=== PATIENT | male | born 1960 | race Caucasian/White ===

== ENCOUNTER 2018-05-19 17:50 | Emergency (ER) | payer OTHER ==
[2018-05-19] MEDS ORDERED: Bupivacaine 0.25% 10 ML SDV INJECT ONE ×2 (19:03→20:12)
[2018-05-19] MEDS ORDERED: Bupivacaine 0.25% 10 ML SDV ONE (20:10)
--- NOTE | 2018-05-19 20:36 | EDM.PDOC ---
ED HPI GENERAL MEDICAL PROBLEM - General Chief Complaint: Laceration Stated Complaint: MED[facility] Time Seen by Provider: 05/19/18 18:27 Source of Information: Reports: Patient History Limitations: Reports: No Limitations - History of Present Illness INITIAL COMMENTS - FREE TEXT/NARRATIVE: This gentleman was clearing out a snowblower today with a piece of lumber was about 1x1" and a couple feet long and he was wearing gloves and he slipped on some ice and sort of fell forward onto his outstretched hands but put all his weight on the end of that stick with the palm of his right hand. And of course she got a laceration in the palm. He said it didn't bleed very much. He began driving toward clinic but then began to feel faint so he called 911 area - Related Data Allergies Allergy/AdvReac Type Severity Reaction Status Date / Time No Known Allergies Allergy Verified 05/19/18 17:59 Home Meds: Home Meds NK [No Known Home Meds] 05/19/18 [History] Past Medical History HEENT History: Reports: Impaired Vision - Past Surgical History HEENT Surgical History: Reports: Oral Surgery Social & Family History - Tobacco Use Smoking Status *Q: Never Smoker - Alcohol Use Days Per Week of Alcohol Use: 3 Number of Drinks Per Day: 1 Total Drinks Per Week: 3 - Recreational Drug Use Recreational Drug Use: No ED ROS GENERAL - Review of Systems Review Of Systems: ROS reveals no pertinent complaints other than HPI. ED EXAM, SKIN/RASH Exam: See Below Exam Limited By: No Limitations General Appearance: Alert, WD/WN, No Apparent Distress Extremities: Other (There is a laceration to the right hand it's from the middle of the palm and extending up onto the hyperthenar eminence. It is L shaped 2x2.5 cm. It's a clean wound. Penetrate just slightly into the deeper tissues of the hand. Neurovascular tendon all intact.) Course - Vital Signs Last Recorded V/S: Last Vital Signs Temp 36.2 C 05/19/18 17:57 Pulse 59 L 05/19/18 17:57 Resp 16 05/19/18 17:57 BP 134/81 05/19/18 17:57 Pulse Ox 92 L 05/19/18 17:57 - Orders/Labs/Meds Meds: Medications Discontinued Medications Generic Name Dose Route Start Last Admin Trade Name Freq PRN Reason Stop Dose Admin Bupivacaine HCl 10 ml 05/19/18 19:03 05/19/18 19:25 Sensorcaine-Mpf 0.25% INJECT 05/19/18 19:04 10 ml ONETIME ONE Administration Bupivacaine HCl 10 ml 05/19/18 20:12 05/19/18 20:13 Sensorcaine-Mpf 0.25% INJECT 05/19/18 20:13 10 ml ONETIME ONE Administration Bupivacaine HCl Confirm 05/19/18 20:10 Sensorcaine-Mpf 0.25% Administered 05/19/18 20:11 Dose 10 ml .[address] .[facility] - Re-Assessments/Exams Free Text/Narrative Re-Assessment/Exam: 05/19/18 20:34 Procedure laceration repair. The wound was injected with 10 mL of 0.25% bupivacaine. A little bit more was required so a second 10 mm dose was procured about 1 mL more was injected around the skin and then I used about 4 mL injecting down deeper into the wound. This gave good anesthesia. The surrounding tissues were then skin surface was then scrubbed with Hibiclens and saline. The wound was copiously irrigated with normal saline by syringe and I palpated the steps of the wound to be sure there was no foreign body. The wound was then closed with a running 4-0 nylon suture giving a good cosmetic result. Bacitracin ointment was applied followed by sterile dressing. Free Text/Narrative Re-Assessment/Exam: 05/19/18 20:37 Tetanus is up-to-date Departure - Departure Time of Disposition: 20:37 Disposition: Home, Self-Care 01 Condition: Fair Clinical Impression: Laceration of right hand - Discharge Information Referrals: PCP,None [Primary Care Provider] - Forms: ED Department Discharge Additional Instructions: Remove the dressing day after tomorrow. Then wash gently with soap and water apply some antibiotic ointment and then covered with a new dressing. Repeat this daily. Watch for any signs of infection and then see your Dr. in 10 days for suture removal.
[2018-05-19] MEDS ORDERED: Bacitracin Oint 1 GM U/D Packet TOP ONE (20:38)
== END 2018-05-19 21:12 | disposition home or self-care (01) ==
LOC: JP.ED 17:50
DX: S61.411A Laceration without foreign body of right hand, initial encounter (principal); W00.0XXA Fall on same level due to ice and snow, initial encounter; Y93.29 Activity, other involving ice and snow
CPT/HCPCS: 12002; 99282; J3490; 12001